=== PATIENT | female | born 1980 | race Caucasian/White ===

== ENCOUNTER 2019-10-15 10:35 | Day surgery (SDC) | payer OTHER ==
[2019-10-13 13:40] LABS: HEMATOCRIT 33.9 % (36.0-48.0); HEMOGLOBIN 10.9 g/dL (12-16); MCH 29.9 pg (26.0-34.0); MCHC 32.2 g/dL (31.0-37.0); MCV 93.1 fL (80.0-100.0); MEAN PLATELET VOLUME 10.2 fL (7.4-10.4); PLATELET COUNT 250 10x3/uL (130-400); RBC 3.64 10x6/uL (4.00-5.40); RDW 13.4 % (11.5-14.5); WBC 3.7 10x3/uL (4.8-10.8)
[2019-10-13 14:42] LABS: EOSINOPHILS 5 % (0-7); LYMPHOCYTES 55 % (15-50); MONOCYTES 7 % (2-11); NEUTROPHILS 33 % (40-80); PLATELET ESTIMATE NORMAL
[~2019-10-15] VITALS: Ht 160 cm; Wt 52.2 kg
--- NOTE | ~2019-10-15 | OP ---
PATIENT NAME: BELGICA PAUL MEDICAL RECORD: [id number] :82 LOCATION:D[facility] ADMISSION DATE: SURGEON: HI CARDOSO MD DATE OF OPERATION: 10/15/2019 PREOPERATIVE DIAGNOSES: 1. Pelvic pain. 2. Dysmenorrhea. 3. Dysfunctional uterine bleeding. POSTOPERATIVE DIAGNOSES: 1. Pelvic pain. 2. Dysmenorrhea. 3. Dysfunctional uterine bleeding. 4. Suspect adenomyosis. 5. Pelvic adhesions. SURGEON: Hi Cardoso MD PLATEMAN: Prince. PROCEDURES PERFORMED: 1. Diagnostic laparoscopy. 2. Hysteroscopy with D&C. FINDINGS: Uterus is enlarged and boggy. The uterus is densely adhered to the left of the midline to the anterior abdominal wall. Both tubes were interrupted. No evidence of active endometriosis. At the time of D&C and hysteroscopy, unremarkable uterine lining. SPECIMENS REMOVED: Endometrial curettings. SPECIMEN DISPOSITION: Pathology. ESTIMATED BLOOD LOSS: Minimal. FLUIDS: 1 liter lactated Ringer's. URINE OUTPUT: Quantity sufficient void prior to this procedure. COMPLICATIONS: None. DRAINS: None. HYDRAULIC PRESS OPERATOR: PAWEL Kevin. ANESTHETIC: General anesthetic with endotracheal intubation. INDICATIONS: The patient is a 39-year-old female with dysmenorrhea, pelvic pain and dysfunctional uterine bleeding. The patient is consented for diagnostic laparoscopy with any indicated procedure along with hysteroscopy and D&C. DESCRIPTION OF PROCEDURE: After informed consent was assured, the patient was taken to the operating room where anesthetic was obtained. The patient was prepped and draped in usual sterile fashion. An incision was made in the left OPERATIVE REPORT [id number] BELGICA PAUL upper quadrant and a 5-mm trocar was placed here. This was due to a history of umbilical hernia with mesh placement. Upon entering the abdomen after insufflating, the patient was placed in Trendelenburg position. The above findings are encountered. The cul-de-sac was inspected. No active endometriosis present. Both ovaries are visualized. Mesh was seen extending down to the edge of the uterine adhesions. No bowel was stuck to the umbilicus. At this point, the diagnostic laparoscopy was spared. The pneumoperitoneum was released and the skin reapproximated with subcuticular stitch. The legs were positioned for the vaginal portion of this case. A speculum was introduced and the cervix grasped and dilated. Hysteroscope was advanced with unremarkable findings. Curettage was now performed. Curettings were sent to pathology. The speculum was now removed from the vagina, and sponge, lap, and needle counts were correct times 2. The patient was awakened and went to the recovery area in stable condition. TRANSINT:[id number] Voice Confirmation ID: [id number] DOCUMENT ID: [id number] HI CARDOSO MD CC: [id number] DICTATION DATE: 10/26/19 0833 RAIL SETTER: 10/26/19 1143 [facility] 10/15/19 [place] [id number]
[~2019-10-15 10:35] MED LIST: CLARITIN 10 MG10 MG; LYSTEDA; MELATONIN; MULTI-DAY VITAM1 TAB PO; PROAIR INHALER; SYMBICORT 16010.2 GM INH; TYLENOL #4 W/CO1 TAB PO; XANAX1 MG
[2019-10-15 11:34] VITALS: Ht 160 cm; Wt 52.2 kg
[2019-10-15 11:43] LABS: HCG URINE NEGATIVE (NEGATIVE)
--- NOTE | 2019-10-15 13:46 | NUR ---
3RD DOSE OF DILAUDID WAS @1335
--- NOTE | 2019-10-15 17:18 | NUR ---
1615 DISCHARGED WITH NAUSEA AND PAIN UNDER CONTROL AFTER DR. CARDOSO AT BEDSIDE TO ANSWER QUESTIONS.
== END 2019-10-15 16:15 | disposition home or self-care (01) ==
LOC: D.OPS 10:35 → D.PAN 12:45 → D.OPS 16:15
PROVIDERS: ATTEND Obstetrics & Gynecology
DX: N93.8 Other specified abnormal uterine and vaginal bleeding (principal); R10.2 Pelvic and perineal pain; N94.6 Dysmenorrhea, unspecified